=== PATIENT | male | born 1945 | race African-American/Black ===

== ENCOUNTER 2024-09-10 10:26 | Emergency (ER) | payer OTHER ==
[~2024-09-10] VITALS: Ht 172.7 cm; Wt 60.0 kg
[2024-09-10 10:31] VITALS: O2SAT 99
[2024-09-10 11:37] LABS: CHLORIDE 106 mEq/L (98-107); POTASSIUM 3.6 mEq/L (3.5-5.1); SODIUM 140 mEq/L (136-145)
[2024-09-10 11:38] LABS: CALCIUM 9.4 mg/dL (8.7-10.4); CARBON DIOXIDE 26 mEq/L (21-32)
[2024-09-10 11:40] LABS: EOSINOPHILS % 2.4 % (0.0-5.0); HEMATOCRIT. 36.2 % (42.0-52.0); HEMOGLOBIN. 11.6 g/dL (14.0-18.0); LYMPHOCYTES % 10.8 % (20.0-50.0); MEAN CORPUSCULAR HEMOGLOBIN 27.8 pg (28.0-32.0); MEAN CORPUSCULAR HGB CONC 32.1 g/dL (31.0-37.0); MEAN CORPUSCULAR VOLUME 86.7 fL (80.0-94.0); MEAN PLATELET VOLUME 8.9 fl (7.4-10.4); NEUTROPHILS % 77.8 % (40.0-76.0); PLATELET 113 x1000/uL (130-400); RED BLOOD CELL COUNT 4.17 mill/uL (4.7-6.1); RED CELL DISTRIBUTION WIDTH 14.4 % (11.6-14.6); WHITE BLOOD COUNT 4.8 x1000/uL (4.5-11.0)
[2024-09-10 11:43] LABS: CREATININE 1.2 mg/dL (0.6-1.3); GLUCOSE 102 mg/dL (70-105); UREA NITROGEN BLOOD 15 mg/dL (9-23)
[2024-09-10 11:44] LABS: TROPONIN I HIGH SENSITIVITY 14 ng/L (3.0-53)
[2024-09-10] MEDS: SODIUM CHLORIDE 0.9% 1,000 ML IV ONE (11:50)
[2024-09-10 11:51] LABS: INR 1.4; PROTHROMBIN TIME 15.3 sec (9.6-11.0)
[2024-09-10] MEDS: HYDRALAZINE 20MG/ML VIAL IV ONE (14:09)
[2024-09-10] MEDS ORDERED: ONDANSETRON HCL 4MG/2ML INJ IV PRN (14:45)
[2024-09-10] MEDS ORDERED: CLONIDINE 0.1MG TABLET PO PRN (14:45)
[2024-09-10] MEDS ORDERED: ACETAMINOPHEN 325MG TABLET PO PRN ×2 (14:45)
[2024-09-10] MEDS ORDERED: GUAIFENESIN 200MG/10ML SUGAR FREE UDC PO PRN (14:45)
[2024-09-10] MEDS ORDERED: DOCUSATE SODIUM 100MG CAPSULE PO PRN (14:45)
[2024-09-10] MEDS ORDERED: IPRATROPIUM/ALBUTEROL 0.5-3(2.5)MG/3ML NEB HHN PRN (14:45)
[2024-09-10] MEDS: METOPROLOL TARTRATE 25MG TABLET PO SCH (15:17)
[2024-09-10] MEDS: METOPROLOL TARTRATE 25MG TABLET PO NR (15:17)
[2024-09-10 15:48] LABS: IRON 58 ug/dL (65-175)
[2024-09-10 15:49] LABS: TRIGLYCERIDE 63 mg/dL (0-150)
[2024-09-10 15:50] LABS: LDL CHOLESTEROL 41 mg/dL (5-100)
[2024-09-10 15:51] LABS: ALBUMIN 3.9 g/dL (3.2-4.8); CHOLESTEROL 104 mg/dL (<200); HDL CHOLESTEROL 51 mg/dL (>55); PHOSPHORUS 2.8 mg/dL (2.5-4.9); PREALBUMIN 12.1 mg/dl (10.0-40.0); TOTAL IRON BINDING CAPACITY 214 ug/dl (250-425)
[2024-09-10] MEDS: PANTOPRAZOLE 40MG DR TABLET PO SCH (16:08)
[2024-09-10 16:27] LABS: THYROID STIMULATING HORMONE 2.35 uIU/mL (0.55-4.78)
[2024-09-10 16:44] LABS: FERRITIN 33 ng/mL (22-322); FOLIC ACID (FOLATE) SERUM > 20.00 ng/mL (>5.38)
[2024-09-10 16:45] LABS: VITAMIN B12 SERUM 234 pg/mL (211-911)
[2024-09-10] MEDS ORDERED: ENOXAPARIN 60MG/0.6ML SYR SUBCUT SCH (18:00)
[2024-09-10 18:38] VITALS: BP 159/66; PULSE 70; RESP 11; TEMP 36.83628; O2SAT 100
[2024-09-10] MEDS ORDERED: METOPROLOL TARTRATE 25MG TABLET PO SCH (21:00)
== END 2024-09-10 18:56 | disposition short-term general hospital (02) ==
LOC: ER 10:26 → EDBEDREQTM 16:42 → EDBEDREQ 16:42 → ER 18:56
DX: S09.90XA Unspecified injury of head, initial encounter (principal); I10 Essential (primary) hypertension; E78.5 Hyperlipidemia, unspecified; E11.9 Type 2 diabetes mellitus without complications; I48.19 Other persistent atrial fibrillation; Z86.73 Personal history of transient ischemic attack (TIA), and cerebral infarction without residual deficits; Z20.822 Contact with and (suspected) exposure to COVID-19; W18.30XA Fall on same level, unspecified, initial encounter; Y93.89 Activity, other specified; Y92.89 Other specified places as the place of occurrence of the external cause; Y99.8 Other external cause status
CPT/HCPCS: 99285; 96374; 70450; 96361; 71045; 87426; 80061; 80048; 82040; 82607; 82728; 82746; 83036; 83880; 84439; 83540; 83550; 83735; 84100; 84134; 84443; 85025; 85610; 85730; 84484; 36415; 93005; J0360; J7030